=== PATIENT | male | born 1935 | race Caucasian/White ===

== ENCOUNTER 2018-02-16 12:41 | Outpatient (CLI) | payer MEDICARE, OTHER ==
--- NOTE | 2018-02-16 14:28 | RAD ---
CHEST 2 VIEWS: Date: 02/16/18 HISTORY: Pleural effusion. COMPARISON: None. FINDINGS: Small right effusion and small left effusion. No pneumothorax. Cardiac silhouette mildly enlarged. 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 IMPRESSION: Small bilateral pleural effusions and cardiomegaly. POS: [facility]
== END 2018-02-16 12:42 | disposition home or self-care (01) ==
LOC: RAD 12:41
PROVIDERS: ATTEND Thoracic Surgery (Cardiothoracic Vascular Surgery)
DX: J90 Pleural effusion, not elsewhere classified (principal); I51.7 Cardiomegaly
CPT/HCPCS: 36415; 71046; 80048; 85027